=== PATIENT | male | born 1950 | race African-American/Black ===

== ENCOUNTER 2016-11-14 05:48 | Day surgery (SDC) | payer OTHER ==
[~2016-11-14] VITALS: Ht 175.3 cm; Wt 77.1 kg
[2016-11-14] VITALS (8 sets, daily range): BP systolic 125–140; BP diastolic 70–82
[~2016-11-14 05:48] MED LIST: Akten 3.5% 1ml Btl RIGHT EYE SCH; NKM; Phenylephrine 2.5% Op Soln RIGHT EYE SCH; Tobradex Opth Susp 2.5ml RIGHT EYE SCH; Tropicamide 1% Opth Soln RIGHT EYE SCH; Vigamox Opth Soln RIGHT EYE SCH
[2016-11-14] MEDS ORDERED: Tropicamide 1% Opth Soln ONE (06:09)
[2016-11-14] MEDS ORDERED: Vigamox Opth Soln ONE (06:09)
[2016-11-14] MEDS ORDERED: Phenylephrine 2.5% Op Soln ONE (06:09)
[2016-11-14] MEDS ORDERED: Akten 3.5% 1ml Btl ONE (06:09)
[2016-11-14] MEDS ORDERED: Tobradex Opth Susp 2.5ml ONE (07:04)
[2016-11-14] MEDS ORDERED: Lidocaine 1% MPF 10mg/ml 5ml ONE (07:06)
[2016-11-14] MEDS ORDERED: acetaZOLAMIDE 500mg Inj ONE (07:06)
[2016-11-14] MEDS ORDERED: BSS 500ml btl ONE (07:06)
[2016-11-14] MEDS ORDERED: Dexamethasone 4mg/ml vial ONE (07:06)
[2016-11-14] MEDS ORDERED: Sodium Hyaluronate 14 mg/ml 0.85ml ONE (07:07)
[2016-11-14] MEDS ORDERED: Carbachol 0.01% Op Soln 1.5ml vial ONE (07:07)
[2016-11-14] MEDS ORDERED: EPINEPHrine 1mg/1ml Amp ONE (07:07)
[2016-11-14] MEDS ORDERED: Povidone-Iodine 5% opth solution ONE (07:07)
[2016-11-14] MEDS ORDERED: BSS 15ml BTL ONE (07:07)
[2016-11-14] MEDS: Akten 3.5% 1ml Btl RIGHT EYE SCH ×3 (07:10→07:28)
[2016-11-14] MEDS: Vigamox Opth Soln RIGHT EYE SCH ×3 (07:10→07:28)
[2016-11-14] MEDS: Phenylephrine 2.5% Op Soln RIGHT EYE SCH ×3 (07:10→07:28)
[2016-11-14] MEDS: Tropicamide 1% Opth Soln RIGHT EYE SCH ×3 (07:10→07:28)
[2016-11-14] MEDS: Tobradex Opth Susp 2.5ml RIGHT EYE SCH ×3 (07:10→07:28)
--- NOTE | 2016-11-14 07:48 | Pre-Procedure Note/Attestation ---
Pre-Procedure Note/Attestation Complete Prior to Procedure Planned Procedure: right Procedure Narrative: cataract extraction with implant right eye Indications for Procedure Pre-Operative Diagnosis: cataract right eye Attestation I attest that I discussed the nature of the procedure; its benefits; risks and complications; and alternatives (and the risks and benefits of such alternatives ), prior to the procedure, with the patient (or the patient's legal computer help desk representative). I attest that, if there was a reasonable possibility of needing a blood transfusion, the patient (or the patient's legal computer help desk representative) was given the [facility] standardized written summary, pursuant to the Rayshawn Roslyn Blood Safety Act ([place] Health and Safety Code # 1645, as amended). I attest that I re-evaluated the patient just prior to the surgery and that there has been no change in the patient's H&P, except as documented below: GABRIELA MERCADO Nov 14, 2016 07:48
[2016-11-14] MEDS ORDERED: Midazolam 2mg/2ml Inj ONE (09:00)
[2016-11-14] MEDS ORDERED: LR 1000ml ONE (09:00)
[2016-11-14] MEDS ORDERED: Sterile Water Irrig 1000ml IRRIG ONE (09:00)
[2016-11-14] MEDS ORDERED: fentaNYL 100 mcg/2 mL IV ONE (09:00)
[2016-11-14] MEDS ORDERED: NS Irrig 1000ml ONE (09:00)
--- NOTE | 2016-11-14 09:31 | Immediate Post-Op Evaluation ---
Immediate Post-Op Evalulation Immediate Post-Op Evalulation Date of Evaluation: Nov 14, 2016 Time of Evaluation: 09:44 IV Fluids: 400 Estimated Blood Loss: 0 Urinary Output: 0 Blood Pressure Systolic: 131 Blood Pressure Diastolic: 73 Pulse Rate: 54 Respiratory Rate: 16 O2 Sat by Pulse Oximetry: 99 Temperature (Fahrenheit): 97.9 Pain Score (1-10): 0 Nausea: No Vomiting: No Patient Status: awake, patent Hydration Status: adequate Given Within 1 Hr of Incision: Chayo Chadwick CRNA Nov 14, 2016 09:31
--- NOTE | 2016-11-14 09:33 | Anethesia Preoperative Eval ---
Anesthesia Pre-op PMH/ROS General Date of Evaluation: Nov 14, 2016 Time of Evaluation: 09:01 Anesthesiologist: Jemma ASA Score: ASA 1 Mallampati Score Class I : Soft palate, uvula, fauces, pillars visible Class II: Soft palate, uvula, fauces visible Class III: Soft palate, base of uvula visible Class IV: Only hard plate visible Mallampati Classification: Class I Surgeon: Talha Surgical Procedure: cataract extraction with implant Right eye Anesthesia History: none Family History: no anesthesia problems Allergies: Coded Allergies: No Known Allergies (Unverified , 11/09/16) Medications: see eMAR Past Medical History Cardiovascular: Denies: HTN, CAD, [place], valve dz, arrhythmia, other Pulmonary: Denies: asthma, COPD, SAVANNAH, other Gastrointestinal/Genitourinary: Denies: GERD, CRI, ESRD, other Neurologic/Psychiatric: Denies: dementia, CVA, depression/anxiety, TIA, other Endocrine: Denies: DM, hypothyroidism, steroids, other HEENT: Reports: cataract (L), cataract (R) Hematology/Immune: Denies: anemia, DVT, bleeding disorder, other Musculoskeletal/Integumentary: Denies: OA, RA, DJD, DDD, edema, other Anesthesia Pre-op Phys. Exam Physician Exam Last Vital Signs Date Time Temp Pulse Resp B/P (MAP) Pulse Ox O2 Delivery O2 Flow Rate FiO2 11/14/16 07:13 97.2 56 19 140/82 99 Room Air Constitutional: NAD Neurologic: CN 2-12 intact Cardiovascular: RRR Respiratory: CTA Gastrointestinal: S/NT/ND Airway Exam Mallampati Score: Class I MO: full ROM: full Teeth: missing - top middle few teeth and top back left side few teeth Dentures: no upper, no lower Anesthesia Pre-op A/P Labs reviewed Studies Pre-op Studies: EKG - NSB Risk Assessment & Plan Plan: MAC Status Change Before Surgery: No Pre-Antibiotics Given Within 1 Hr of Incision: Chayo Chadwick CRNA Nov 14, 2016 09:33
--- NOTE | 2016-11-14 09:41 | Brief Operative Note ---
Immediate Post Operative Note Operative Note Pre-op Diagnosis: cataract right eye Procedure: phacoemulsification of cataract with implant right eye Post-op Diagnosis: same as pre-op Surgeon: gabriela downing Screw Down: none Anesthesiologist: rashaad cespedes crna Anesthesia: MAC Specimen: none Complications: none Condition: stable Fluids: none Estimated Blood Loss: minimal Drains: none Implant(s) used?: Yes GABRIELA DOWNING Nov 14, 2016 09:41
--- NOTE | 2016-11-14 10:19 | 48 Hour Post Anesthesia Eval ---
Post Anesthesia Evaluation Date of Evaluation: Nov 14, 2016 Time of Evaluation: 10:18 Blood Pressure Systolic: 125 0: 68 Pulse Rate: 55 Respiratory Rate: 18 Temperature (Fahrenheit): 97.9 O2 Sat by Pulse Oximetry: 100 Airway: patent Nausea: No Vomiting: No Pain Intensity: 0 Hydration Status: adequate Mental Status/LOC: patient returned to baseline Follow-up care needed: patient intructions given Chayo Easton CRNA Nov 14, 2016 10:19
--- NOTE | 2016-11-14 18:16 | Operative Note - Dictated ---
DATE OF OPERATION: 11/14/2016 PREOPERATIVE DIAGNOSIS: Cataract, right eye. POSTOPERATIVE DIAGNOSIS: Cataract, right eye. Procedure: Phacoemulsification of cataract right eye with placement of posterior chamber intraocular lens. SURGEON: Papo Palencia M.D. PELLETISING EXTRUDER OPERATOR: None. ANESTHESIA: MAC/topical. ANESTHESIOLOGIST: Jefferson Easton CRNA. INDICATION FOR PROCEDURE: Poor vision, right eye. Description Of Findings: Nuclear sclerotic and posterior subcapsular cataract, right eye. Description of Procedure: The patient received a topical anesthetic block consisting of 3.5% Akten eye drops. The eye was then prepped and draped in the usual manner. A lid speculum was placed. An operating Zeiss microscope was positioned. A temporal corneal groove was made with the paula blade. A SuperSharp blade made a stab incision at the 12 o'clock position. A 0.1 mL of intracameral lidocaine was injected. Healon was instilled into the anterior chamber and a 2.5/2.8 mm trapezoidal paula blade was used to complete the temporal corneal wound. A cystotome was used to create an anterior capsular flap. Utrata forceps were used to complete the capsulorrhexis. BSS on a cannula was used to hydrodissect the nucleus. The lens nucleus was phacoemulsified in a phaco-fracture technique. Remaining cortical material was removed with the I/A and the posterior capsule polished with the I/A on Cap vac. Healon was instilled in the capsular bag and anterior chamber, and an Hecrules foldable one-piece posterior chamber intraocular lens, model ZCB00, power 20.0 diopter, serial number #[id number] was placed in the injector. The lens was put into the capsular bag. The I/A tip was used to remove the Healon and position the lens. The wound edge was hydrated with BSS and a blunt-tipped cannula. The wound was checked and found to be watertight. The lid speculum was removed and a drop of TobraDex and Vigamox was placed. A clear plastic shield was taped over the eye. The patient tolerated well and left the operating room in good condition. Papo Palencia M.D. ([facility] [place]) DR: RICHARDSON JOB#: [id number] CC:
== END 2016-11-14 11:15 | disposition home or self-care (01) ==
LOC: SUR 05:48
DX: H25.041 Posterior subcapsular polar age-related cataract, right eye (principal); H25.11 Age-related nuclear cataract, right eye; Z83.3 Family history of diabetes mellitus; Z82.49 Family history of ischemic heart disease and other diseases of the circulatory system
CPT/HCPCS: 66984; J0171; J1100; J2250; J3010; J7120; V2632; 94003; 94150

== ENCOUNTER 2017-01-09 05:57 | Day surgery (SDC) | payer OTHER ==
[~2017-01-09] VITALS: Ht 175.3 cm; Wt 78.5 kg
[2017-01-09] VITALS (10 sets, daily range): BP systolic 116–139; BP diastolic 71–78
--- NOTE | 2017-01-09 00:26 | Pre-Procedure Note/Attestation ---
Pre-Procedure Note/Attestation Complete Prior to Procedure Planned Procedure: left Procedure Narrative: cataract extraction with implant left eye Indications for Procedure Pre-Operative Diagnosis: cataract left eye Attestation I attest that I discussed the nature of the procedure; its benefits; risks and complications; and alternatives (and the risks and benefits of such alternatives ), prior to the procedure, with the patient (or the patient's legal renewals representative). I attest that, if there was a reasonable possibility of needing a blood transfusion, the patient (or the patient's legal renewals representative) was given the [facility] standardized written summary, pursuant to the Rayshawn No Blood Safety Act ([place] Health and Safety Code # 1645, as amended). I attest that I re-evaluated the patient just prior to the surgery and that there has been no change in the patient's H&P, except as documented below: GABRIELA MERCADO Jan 09, 2017 00:26
--- NOTE | 2017-01-09 00:26 | Pre-Procedure Note/Attestation ---
Pre-Procedure Note/Attestation Complete Prior to Procedure Planned Procedure: left Procedure Narrative: cataract extraction with implant left eye Indications for Procedure Pre-Operative Diagnosis: cataract left eye Attestation I attest that I discussed the nature of the procedure; its benefits; risks and complications; and alternatives (and the risks and benefits of such alternatives ), prior to the procedure, with the patient (or the patient's legal customer operations representative). I attest that, if there was a reasonable possibility of needing a blood transfusion, the patient (or the patient's legal customer operations representative) was given the [facility] standardized written summary, pursuant to the Rayshawn No Blood Safety Act ([place] Health and Safety Code # 1645, as amended). I attest that I re-evaluated the patient just prior to the surgery and that there has been no change in the patient's H&P, except as documented below: GABRIELA MERCADO Jan 09, 2017 00:26
--- NOTE | 2017-01-09 00:26 | Pre-Procedure Note/Attestation ---
Pre-Procedure Note/Attestation Complete Prior to Procedure Planned Procedure: left Procedure Narrative: cataract extraction with implant left eye Indications for Procedure Pre-Operative Diagnosis: cataract left eye Attestation I attest that I discussed the nature of the procedure; its benefits; risks and complications; and alternatives (and the risks and benefits of such alternatives ), prior to the procedure, with the patient (or the patient's legal sales account representative). I attest that, if there was a reasonable possibility of needing a blood transfusion, the patient (or the patient's legal sales account representative) was given the [facility] standardized written summary, pursuant to the Rayshawn No Blood Safety Act ([place] Health and Safety Code # 1645, as amended). I attest that I re-evaluated the patient just prior to the surgery and that there has been no change in the patient's H&P, except as documented below: GABRIELA MERCADO Jan 09, 2017 00:26
[~2017-01-09 05:57] MED LIST changes: -Akten 3.5% 1ml Btl RIGHT EYE SCH; -Phenylephrine 2.5% Op Soln RIGHT EYE SCH; -Tobradex Opth Susp 2.5ml RIGHT EYE SCH; -Tropicamide 1% Opth Soln RIGHT EYE SCH; -Vigamox Opth Soln RIGHT EYE SCH
[2017-01-09] MEDS ORDERED: Akten 3.5% 1ml Btl ONE (06:16)
[2017-01-09] MEDS ORDERED: Phenylephrine 2.5% Op 2ml Soln ONE (06:16)
[2017-01-09] MEDS ORDERED: Tropicamide 1% Opth 15ml Soln ONE (06:16)
[2017-01-09] MEDS ORDERED: Flurbiprofen 0.03% Opth Sol 2.5ml ONE (06:16)
[2017-01-09] MEDS ORDERED: Tobradex Opth Susp 2.5ml ONE (06:16)
[2017-01-09] MEDS ORDERED: Vigamox Opth Soln 3ml ONE (06:16)
[2017-01-09] MEDS: Flurbiprofen 0.03% Opth Sol 2.5ml LEFT EYE SCH ×3 (06:24→06:44)
[2017-01-09] MEDS: Tobradex Opth Susp 2.5ml LEFT EYE SCH ×3 (06:24→06:45)
[2017-01-09] MEDS: Tropicamide 1% Opth 15ml Soln LEFT EYE SCH ×3 (06:25→06:45)
[2017-01-09] MEDS: Vigamox Opth Soln 3ml LEFT EYE SCH ×3 (06:25→06:45)
[2017-01-09] MEDS: Phenylephrine 2.5% Op 2ml Soln LEFT EYE SCH ×3 (06:25→06:44)
[2017-01-09] MEDS: Akten 3.5% 1ml Btl LEFT EYE SCH ×3 (06:25→06:44)
[2017-01-09] MEDS ORDERED: Dexamethasone 4mg/ml vial ONE (06:48)
[2017-01-09] MEDS ORDERED: Lidocaine 1% MPF 10mg/ml 5ml ONE (06:48)
[2017-01-09] MEDS ORDERED: BSS 500ml btl ONE (06:48)
[2017-01-09] MEDS ORDERED: Sodium Hyaluronate 14 mg/ml 0.85ml ONE (06:50)
[2017-01-09] MEDS ORDERED: EPINEPHrine 1mg/1ml Amp ONE (06:50)
[2017-01-09] MEDS ORDERED: BSS 15ml BTL ONE (06:50)
[2017-01-09] MEDS ORDERED: Carbachol 0.01% Op Soln 1.5ml vial ONE (06:50)
[2017-01-09] MEDS ORDERED: Povidone-Iodine 5% opth solution ONE (06:50)
[2017-01-09] MEDS ORDERED: LR 1000ml ONE (07:15)
[2017-01-09] MEDS ORDERED: Midazolam 2mg/2ml Inj ONE (07:15)
[2017-01-09] MEDS ORDERED: fentaNYL 100 mcg/2 mL IV ONE (07:15)
[2017-01-09] MEDS ORDERED: Sterile Water Irrig 1000ml IRRIG ONE (07:15)
[2017-01-09] MEDS ORDERED: NS Irrig 1000ml ONE (07:15)
--- NOTE | 2017-01-09 07:35 | Anethesia Preoperative Eval ---
Anesthesia Pre-op PMH/ROS General Date of Evaluation: Jan 09, 2017 Time of Evaluation: 07:15 Anesthesiologist: Jemma ASA Score: ASA 1 Mallampati Score Class I : Soft palate, uvula, fauces, pillars visible Class II: Soft palate, uvula, fauces visible Class III: Soft palate, base of uvula visible Class IV: Only hard plate visible Mallampati Classification: Class II Surgeon: Talha Diagnosis: cataract of left eye Surgical Procedure: Left eye cataract removal with implantation Anesthesia History: none Family History: no anesthesia problems Allergies: Coded Allergies: No Known Allergies (Unverified , 11/09/16) Medications: see eMAR Past Medical History Cardiovascular: Denies: HTN, CAD, [place], valve dz, arrhythmia, other Pulmonary: Denies: asthma, COPD, SAVANNAH, other Gastrointestinal/Genitourinary: Denies: GERD, CRI, ESRD, other Neurologic/Psychiatric: Denies: dementia, CVA, depression/anxiety, TIA, other Endocrine: Denies: DM, hypothyroidism, steroids, other HEENT: Reports: cataract (L), cataract (R) Hematology/Immune: Denies: anemia, DVT, bleeding disorder, other Musculoskeletal/Integumentary: Denies: OA, RA, DJD, DDD, edema, other Anesthesia Pre-op Phys. Exam Physician Exam Last Vital Signs Date Time Temp Pulse Resp B/P (MAP) Pulse Ox O2 Delivery O2 Flow Rate FiO2 01/09/17 06:29 97.2 56 18 139/73 99 Room Air Constitutional: NAD Neurologic: CN 2-12 intact Cardiovascular: RRR Respiratory: CTA Gastrointestinal: S/NT/ND Airway Exam Mallampati Score: Class II MO: full ROM: full Teeth: missing - missing left lower back teeth and most of upper teeth, upper dentures removed Dentures: upper Anesthesia Pre-op A/P Labs wavied by Dr. Santiago due to no significant pt history Studies Pre-op Studies: EKG - NSR Risk Assessment & Plan Plan: MAC anesthesia Status Change Before Surgery: No Pre-Antibiotics Given Within 1 Hr of Incision: Chayo Chadwick CRNA Jan 09, 2017 07:35
--- NOTE | 2017-01-09 07:36 | Immediate Post-Op Evaluation ---
Immediate Post-Op Evalulation Immediate Post-Op Evalulation Date of Evaluation: Jan 09, 2017 Time of Evaluation: 08:08 IV Fluids: LR Blood Products: 0 Estimated Blood Loss: 0 Urinary Output: 0 Blood Pressure Systolic: 135 Blood Pressure Diastolic: 78 Pulse Rate: 59 Respiratory Rate: 18 O2 Sat by Pulse Oximetry: 99 Temperature (Fahrenheit): 97.6 Pain Score (1-10): 0 Nausea: No Vomiting: No Complications none Patient Status: awake, reacts, patent Hydration Status: adequate Given Within 1 Hr of Incision: No - none per surgeon Chayo Easton CRNA Jan 09, 2017 07:36
--- NOTE | 2017-01-09 07:37 | 48 Hour Post Anesthesia Eval ---
Post Anesthesia Evaluation Date of Evaluation: Jan 09, 2017 Time of Evaluation: 08:14 Blood Pressure Systolic: 123 0: 76 Pulse Rate: 63 Respiratory Rate: 14 Temperature (Fahrenheit): 97.7 O2 Sat by Pulse Oximetry: 99 Airway: patent Nausea: No Vomiting: No Pain Intensity: 0 Hydration Status: adequate Mental Status/LOC: patient returned to baseline Follow-up care needed: patient intructions given Chayo Easton CRNA Jan 09, 2017 07:37
--- NOTE | 2017-01-09 08:11 | Brief Operative Note ---
Immediate Post Operative Note Operative Note Pre-op Diagnosis: cataract left eye Procedure: phacoemulsification of cataract with implant left eye Post-op Diagnosis: same as pre-op Surgeon: gabriela downing Heating Operators Engineer: none Anesthesiologist: rashaad cespedes crna Anesthesia: MAC Specimen: none Complications: none Condition: stable Fluids: none Estimated Blood Loss: none Drains: none Implant(s) used?: Yes GABRIELA DOWNING Jan 09, 2017 08:11
--- NOTE | 2017-01-09 18:00 | Operative Note - Dictated ---
DATE OF OPERATION: 01/09/2017 PREOPERATIVE DIAGNOSIS: Cataract, left eye. POSTOPERATIVE DIAGNOSIS: Cataract, left eye. PROCEDURE: Phacoemulsification of cataract, left eye, with placement of posterior chamber intraocular lens. SURGEON: Papo Palencia [place] [place] IN STORE MARKETER: None. ANESTHESIA: MAC/topical. ANESTHESIOLOGIST: Jefferson Easton CRNA. INDICATION FOR PROCEDURE: Poor vision, left eye. DESCRIPTION OF FINDINGS: Nuclear sclerotic and cortical cataract, left eye. DESCRIPTION OF PROCEDURE: The patient received a topical anesthetic block consisting of 3.5% Akten eye drops. The eye was then prepped and draped in usual manner. A lid speculum was placed. An operating Zeiss microscope was positioned. A temporal corneal groove was then made with a paula blade. A SuperSharp blade made a stab incision at the 6 o'clock position. A 0.1 mL of 1% nonpreserved intracameral lidocaine was injected. Healon was instilled into the anterior chamber and a 2.5/2.8 mm trapezoidal paula blade was used to complete the temporal corneal wound. A cystotome was used to create an anterior capsular flap. Utrata forceps were used to complete the capsulorrhexis. BSS on a cannula was used to hydrodissect the nucleus. The lens nucleus phacoemulsified in a phaco-fracture technique. Remaining cortical material was removed with the I/A and the posterior capsule was polished with the I/A on Cap vac. Healon was instilled into the capsular bag and the anterior chamber, and an Hercules foldable one-piece posterior chamber intraocular lens, model ZCB00, power 20.0 diopter, serial number #[id number] was placed in the injector. The lens was put in the capsular bag. The I/A tip was used to remove the Healon and position the lens. The wound edge was hydrated with BSS and a blunt-tipped cannula. The wound was checked and found to be watertight. The lid speculum was removed and a drop of TobraDex and Vigamox was placed. A clear plastic shield was taped over the eye. The patient tolerated the procedure well and left the operating room in good condition. Papo Palencia M.D. ([facility]) DR: RICHARDSON JOB#: [id number] CC:
--- NOTE | 2017-01-09 18:00 | Operative Note - Dictated ---
DATE OF OPERATION: 01/09/2017 PREOPERATIVE DIAGNOSIS: Cataract, left eye. POSTOPERATIVE DIAGNOSIS: Cataract, left eye. PROCEDURE: Phacoemulsification of cataract, left eye, with placement of posterior chamber intraocular lens. [place]GEON: Papo Palencia M.[place]. [place] [place] MEDICAL RECORDS TECH: None. ANESTHESIA: MAC/topical. ANESTHESIOLOGIST: Jefferson Easton CRNA. INDICATION FOR PROCEDURE: Poor vision, left eye. DESCRIPTION OF FINDINGS: Nuclear sclerotic and cortical cataract, left eye. DESCRIPTION OF PROCEDURE: The patient received a topical anesthetic block consisting of 3.5% Akten eye drops. The eye was then prepped and draped in usual manner. A lid speculum was placed. An operating Zeiss microscope was positioned. A temporal corneal groove was then made with a paula blade. A SuperSharp blade made a stab incision at the 6 o'clock position. A 0.1 mL of 1% nonpreserved intracameral lidocaine was injected. Healon was instilled into the anterior chamber and a 2.5/2.8 mm trapezoidal paula blade was used to complete the temporal corneal wound. A cystotome was used to create an anterior capsular flap. Utrata forceps were used to complete the capsulorrhexis. BSS on a cannula was used to hydrodissect the nucleus. The lens nucleus phacoemulsified in a phaco-fracture technique. Remaining cortical material was removed with the I/A and the posterior capsule was polished with the I/A on Cap vac. Healon was instilled into the capsular bag and the anterior chamber, and an Hercules foldable one-piece posterior chamber intraocular lens, model ZCB00, power 20.0 diopter, serial number #[id number] was placed in the injector. The lens was put in the capsular bag. The I/A tip was used to remove the Healon and position the lens. The wound edge was hydrated with BSS and a blunt-tipped cannula. The wound was checked and found to be watertight. The lid speculum was removed and a drop of TobraDex and Vigamox was placed. A clear plastic shield was taped over the eye. The patient tolerated the procedure well and left the operating room in good condition. Papo Palencia M.D. ([facility]) DR: RICHARDSON JOB#: [id number] CC:
--- NOTE | 2017-01-09 18:00 | Operative Note - Dictated ---
DATE OF OPERATION: 01/09/2017 PREOPERATIVE DIAGNOSIS: Cataract, left eye. POSTOPERATIVE DIAGNOSIS: Cataract, left eye. PROCEDURE: Phacoemulsification of cataract, left eye, with placement of posterior chamber intraocular lens. SURGEON: Papo Palencia M.D. ([facility] [place]) BODY ROLLING MACHINE TENDER: None. ANESTHESIA: MAC/topical. ANESTHESIOLOGIST: Jefferson Easton CRNA. INDICATION FOR PROCEDURE: Poor vision, left eye. DESCRIPTION OF FINDINGS: Nuclear sclerotic and cortical cataract, left eye. DESCRIPTION OF PROCEDURE: The patient received a topical anesthetic block consisting of 3.5% Akten eye drops. The eye was then prepped and draped in usual manner. A lid speculum was placed. An operating Zeiss microscope was positioned. A temporal corneal groove was then made with a paula blade. A SuperSharp blade made a stab incision at the 6 o'clock position. A 0.1 mL of 1% nonpreserved intracameral lidocaine was injected. Healon was instilled into the anterior chamber and a 2.5/2.8 mm trapezoidal paula blade was used to complete the temporal corneal wound. A cystotome was used to create an anterior capsular flap. Utrata forceps were used to complete the capsulorrhexis. BSS on a cannula was used to hydrodissect the nucleus. The lens nucleus phacoemulsified in a phaco-fracture technique. Remaining cortical material was removed with the I/A and the posterior capsule was polished with the I/A on Cap vac. Healon was instilled into the capsular bag and the anterior chamber, and an Hercules foldable one-piece posterior chamber intraocular lens, model ZCB00, power 20.0 diopter, serial number #[id number] was placed in the injector. The lens was put in the capsular bag. The I/A tip was used to remove the Healon and position the lens. The wound edge was hydrated with BSS and a blunt-tipped cannula. The wound was checked and found to be watertight. The lid speculum was removed and a drop of TobraDex and Vigamox was placed. A clear plastic shield was taped over the eye. The patient tolerated the procedure well and left the operating room in good condition. Papo Palencia M.D. ([facility]) DR: RICHARDSON JOB#: [id number] CC:
[2017-01-10] MEDS ORDERED: Vigamox Opth Soln 3ml LEFT EYE SCH (00:30)
[2017-01-10] MEDS ORDERED: Akten 3.5% 1ml Btl LEFT EYE SCH (00:30)
[2017-01-10] MEDS ORDERED: Tropicamide 1% Opth 15ml Soln LEFT EYE SCH (00:30)
[2017-01-10] MEDS ORDERED: Phenylephrine 2.5% Op 2ml Soln LEFT EYE SCH (00:30)
[2017-01-10] MEDS ORDERED: Flurbiprofen 0.03% Opth Sol 2.5ml LEFT EYE SCH (00:30)
[2017-01-10] MEDS ORDERED: Tobradex Opth Susp 2.5ml LEFT EYE SCH (00:30)
== END 2017-01-09 12:20 | disposition home or self-care (01) ==
LOC: SUR 05:57
DX: H25.12 Age-related nuclear cataract, left eye (principal); H25.012 Cortical age-related cataract, left eye; Z83.3 Family history of diabetes mellitus; Z82.49 Family history of ischemic heart disease and other diseases of the circulatory system
CPT/HCPCS: 66984; J0171; J1100; J2250; J3010; J7120; V2632; 94003; 94150